=== PATIENT | male | born 1935 ===

== ENCOUNTER 2021-04-28 12:00 | Inpatient (IN) | payer OTHER ==
[~2021-04-28] VITALS: Ht 182.9 cm; Wt 77.1 kg
[2021-04-28] MEDS ORDERED: ZESTRIL2.5 MG PO (15:04)
[2021-05-06] MEDS ORDERED: INTESTINEX680 M1 PO (08:09)
== END 2021-05-06 10:08 | disposition home or self-care (01) | DRG 331 ==
LOC: SURG 05-03 06:35 → O/R 05-03 06:35 → SURG 05-03 11:07 → SURH 05-03 12:00 → SURG 05-06 10:08
PROVIDERS: ADMIT Surgery; ATTEND Surgery
PROC: 0DTP4ZZ Resection of Rectum, Percutaneous Endoscopic Approach (ICD-10-PCS; 2021-05-03)
PROC: 07BC4ZX Excision of Pelvis Lymphatic, Percutaneous Endoscopic Approach, Diagnostic (ICD-10-PCS; 2021-05-03)
PROC: 0DBN4ZZ Excision of Sigmoid Colon, Percutaneous Endoscopic Approach (ICD-10-PCS; principal; 2021-05-03 20:00)
DX: C19 Malignant neoplasm of rectosigmoid junction (principal); I13.10 Hypertensive heart and chronic kidney disease without heart failure, with stage 1 through stage 4 chronic kidney disease, or unspecified chronic kidney disease; N18.2 Chronic kidney disease, stage 2 (mild); D50.0 Iron deficiency anemia secondary to blood loss (chronic)